=== PATIENT | female | born 1995 | race Caucasian/White ===

== ENCOUNTER 2017-03-07 03:39 | Emergency (ER) | payer SELFPAY ==
[2017-03-07 03:47] VITALS: BP 133/51
[2017-03-07 04:43] LABS: BACTERIA,URINE 0 /HPF (0-FEW); BILIRUBIN,URINE NEG (NEG); CLARITY,URINE CLEAR; COLOR,URINE YELLOW; GLUCOSE,URINE NEG (NEG); NITRITE,URINE NEG (NEG); RBC,URINE 0 /HPF (0-2); SQUAMOUS EPITHELIAL CELL,UR OCC /LPF; UROBILINOGEN,URINE 0.2 mg/dL (0.2 mg/dL)
[2017-03-07] MEDS ORDERED: AMOX1TAB61 PO (04:57)
--- NOTE | 2017-03-07 05:13 | PHYS DOC ---
Past History Past Medical History: Anemia, Asthma Past Surgical History: No Surgical History Alcohol Use: Occasionally Drug Use: None Adult General Chief Complaint Chief Complaint: MULTIPLE COMPLAINTS [facility] HPI Patient is a 21 year old F who presents with multiple complaints. Millicent states that she has occasional nausea without vomiting, occasional abdominal pain mostly in the middle but present occasionally throughout her belly as well as intermittent focal pain however the focal pain is not consistently in the same area or associated with nausea. She also describes dizziness that is difficult to associate with anything, headache that does not seem to linked to any other symptoms, intermittent sharp chest pain lasting seconds to minutes without exacerbating or alleviating factors, episodic limb pain lasting minutes to hours with no exacerbating or alleviating factors. With respect to her chest pain and limb pain, these symptoms have been noted for months. With respect to all other symptoms previously noted, these symptoms have been present over the past 2-3 weeks. She also notes dental pain associated with a cavity that she has had over the past 2-3 weeks. She has not seen a dentist or an started on medications during this time. She also notes intermittent constipation. Her last bowel movement was hard, small, and painful to pass yesterday. Over the past several weeks she feels that she has been constipated. Review of Systems Review of Systems Constitutional: Denies fever or chills [] Eyes: Denies change in visual acuity, redness, or eye pain [] HENT: Denies nasal congestion or sore throat [] Respiratory: Denies cough or shortness of breath [] Cardiovascular: No additional information not addressed in HPI [] GI: Negative except history of present illness : Urinary urgency with feeling of incomplete emptying. Millicent states that this happens 2-3 times daily Musculoskeletal: Negative except history of present illness Integument: Denies rash or skin lesions [] Neurologic: Denies headache, focal weakness or sensory changes [] Endocrine: Denies polyuria or polydipsia [] Family History Family History Noncontributory Current Medications Current Medications No current medications Allergies Allergies Allergies Coded Allergies Type Severity Reaction Last Updated Verified No Known Drug Allergies 03/07/17 No Physical Exam Physical Exam Constitutional: Well developed, well nourished, no acute distress, non-toxic appearance. [] HENT: Normocephalic, atraumatic, bilateral external ears normal, oropharynx moist, no oral exudates, left upper premolar cavity noted with moderate pain to palpation. Mild gingivitis noted in that area Eyes: EOMI, conjunctiva normal, no discharge. [] Neck: Normal range of motion, no tenderness, supple, no stridor. [] Cardiovascular:Heart rate regular rhythm, no murmur [] Lungs & Thorax: Bilateral breath sounds clear to auscultation [] Abdomen: Bowel sounds normal, soft, no tenderness, no masses, no pulsatile masses. [] exam deferred Skin: Warm, dry, no erythema, no rash. [] Back: No tenderness, no CVA tenderness. [] Extremities: No tenderness, no cyanosis, no clubbing, ROM intact, no edema. [] Neurologic: Alert and oriented X 3, normal motor function, normal sensory function, no focal deficits noted. [] Psychologic: Affect normal, judgement normal, mood normal. [] Current Patient Data Vital Signs Vital Signs Date Time Temp Pulse Resp B/P (MAP) Pulse Ox O2 Delivery O2 Flow Rate FiO2 03/07/17 03:47 98.3 86 16 96 Room Air Lab Results Laboratory Tests Test 03/07/17 04:15 03/07/17 04:29 Urine Collection Type Unknown Urine Color Yellow Urine Clarity Clear Urine pH 6.0 Urine Specific [place] 1.010 Urine Protein Neg (NEG-TRACE) Urine Glucose (UA) Neg mg/dL (NEG) Urine Ketones (Stick) Neg mg/dL (NEG) Urine Blood Neg (NEG) Urine Nitrite Neg (NEG) Urine Bilirubin Neg (NEG) Urine Urobilinogen Dipstick 0.2 mg/dL (0.2 mg/dL) Urine Leukocyte Esterase Neg (NEG) Urine RBC 0 /HPF (0-2) Urine WBC 1-4 /HPF (0-4) Urine Squamous Epithelial Cells Occ /LPF Urine Bacteria 0 /HPF (0-FEW) POC Urine HCG, Qualitative hcg negative (Negative) EKG EKG [] Radiology/Procedures Radiology/Procedures [] Course & Med Decision Making Course & Med Decision Making Pertinent Labs and Imaging studies reviewed. (See chart for details) Millicent's history is complicated by multiple nonspecific complaints in multiple different regions and body systems. She has a difficult time elaborating on specifics of each complaint. As new complaints are listed it details are explored and other complaints details seen to change or clarify making it very challenging to follow a story line. At the time of evaluation she was symptom free. Dragon Disclaimer Dragon Disclaimer This chart was dictated in whole or in part using Voice Recognition software in a busy, high-work load, and often noisy Emergency Department environment. It may contain unintended and wholly unrecognized errors or omissions. Departure Departure: Impression: Primary Impression: Dental infection Disposition: HOME, SELF-CARE Condition: STABLE Referrals: PCP,NO (PCP) Patient Instructions: Dental Abscess, Dental Caries Additional Instructions: Millicent was seen in the emergency department for multiple complaints. No emergency medical condition was found on history or physical exam. She was found to have symptoms consistent with a dental infection for which she was started on antibiotics. She was advised to follow-up with a dentist as soon as possible as well as to establish care with a primary care physician in order to further manage her other medical concerns. Scripts Amoxicillin/Potassium Clav (AUGMENTIN 875-125 TABLET) 1 Each Tablet 1 TAB PO BID for 14 Days, #28 TAB Prov: NAIN CHAVEZ MD 03/07/17 NAIN CHAVEZ MD Mar 07, 2017 05:13
[2017-03-07] MEDS ORDERED: AMOXICILLIN/K CLAV 875/125MG TABLET. PO ONE (05:15)
== END 2017-03-07 05:00 | disposition home or self-care (01) ==
LOC: ER 03:39
DX: K04.7 Periapical abscess without sinus (principal); J45.909 Unspecified asthma, uncomplicated; R39.15 Urgency of urination; Z86.2 Personal history of diseases of the blood and blood-forming organs and certain disorders involving the immune mechanism
CPT/HCPCS: 81001; 81025; 99283

== ENCOUNTER 2020-07-22 00:06 | Emergency (ER) | payer SELFPAY ==
[~2020-07-22] VITALS: Ht 160 cm; Wt 68.0 kg
[2020-07-22 00:06] VITALS: BP 144/89
[~2020-07-22 00:06] MED LIST: AMOX1TAB61 PO
--- NOTE | 2020-07-22 00:29 | PHYS DOC ---
Past History Past Medical History: Anemia, Anxiety, Asthma, Depression Past Surgical History: No Surgical History Smoking: Cigarettes Alcohol Use: Occasionally Drug Use: Marijuana, Methamphetamine General Adult EDM: Chief Complaint: Drug abuse HPI: HPI: 25-year-old female presents via EMS from local [facility] [place] [facility] with report of patient with confusion and history of possible drug abuse. Patient reports she smokes something that she believes was methamphetamines earlier tonight. Patient is afraid that the "bad people will get her ". Patient reports she does not necessarily want to be seen or hurt. Reports she does not typically use any drugs other than marijuana. Denies . Reports she currently is not sexually active. Review of Systems: Review of Systems: Constitutional: Denies fever or chills Eyes: Denies redness or eye pain HENT: Denies nasal congestion or sore throat Respiratory: Denies cough or shortness of breath Cardiovascular: Denies chest pain or palpitations GI: Denies abdominal pain, nausea, or vomiting : Denies dysuria or hematuria Musculoskeletal: Denies back pain or joint pain Integument: Denies rash or skin lesions Neurologic: Denies headache, focal weakness or sensory changes Complete systems were reviewed and found to be within normal limits, except as documented in this note. Allergies: Allergies: Allergies Coded Allergies Type Severity Reaction Last Updated Verified No Known Drug Allergies 03/07/17 No Physical Exam: PE: Constitutional: Well developed, well nourished, anxious, non-toxic appearance HENT: Normocephalic, atraumatic Eyes: Conjunctiva normal, no discharge Neck: Normal range of motion, supple Lungs & Thorax: No respiratory distress, equal chest rise and fall Skin: Warm, dry, no erythema, no rash Extremities: No tenderness, ROM intact, no edema Neurologic: Alert and oriented X 3, no focal deficits noted Psychologic: Affect anxious, paranoid EKG: EKG: [] Radiology/Procedures: Radiology/Procedures: [] Course & Med Decision Making: Course & Med Decision Making Patient presents via EMS with report of confusion after use of drugs. Patient thinks she might of smoked some methamphetamines earlier tonight. Patient does appear to be paranoid. Patient however is alert and oriented x3. Patient with steady gait. Vital signs stable. Patient afraid and concerned that we will hurt her. Patient advised we are not here to hurt her and will allow her to stay in the room and sober. Patient now clinically improved. Patient stable for discharge with outpatient follow-up with PCP. Discussed findings and plan with patient, who acknowledges understanding and agreement. Misty Disclaimer: Misty Disclaimer: This electronic medical record was generated, in whole or in part, using a voice recognition dictation system. Departure Departure: Impression: Primary Impression: Drug abuse Additional Impression: Acute paranoia Disposition: 01 DC HOME SELF CARE/HOMELESS Condition: STABLE Referrals: PCP,NO (PCP) Patient Instructions: Alcohol and Drug Addiction, Finding Treatment, Drug Abuse, FAQs, Methamphetamine Abuse, Complications, Paranoia JONO MONSALVE DO Jul 22, 2020 00:28
== END 2020-07-22 04:30 | disposition home or self-care (01) ==
LOC: ER 00:06
DX: F19.10 Other psychoactive substance abuse, uncomplicated (principal); F22 Delusional disorders; F41.9 Anxiety disorder, unspecified; F32.9 Major depressive disorder, single episode, unspecified; J45.909 Unspecified asthma, uncomplicated; F17.210 Nicotine dependence, cigarettes, uncomplicated; F12.10 Cannabis abuse, uncomplicated; F15.10 Other stimulant abuse, uncomplicated; Z86.2 Personal history of diseases of the blood and blood-forming organs and certain disorders involving the immune mechanism
CPT/HCPCS: 99283

== ENCOUNTER 2020-11-15 11:59 | Emergency (ER) | payer SELFPAY ==
[~2020-11-15] VITALS: Ht 160 cm; Wt 66.7 kg
[2020-11-15 12:40] LABS: BASO # 0.1 x10^3/uL (0.0-0.2); BASO % 1 % (0-3); EOS % 0 % (0-3); HEMATOCRIT 43.1 % (36.0-47.0); HEMOGLOBIN 15.1 g/dL (12.0-15.5); LYMPH # 1.3 x10^3/uL (1.0-4.8); LYMPH % 14 % (24-48); MEAN CORPUSCULAR HEMOGLOBIN 31 pg (25-35); MEAN CORPUSCULAR HGB CONC 35 g/dL (31-37); MEAN CORPUSCULAR VOLUME 88 fL (79-100); MONO # 0.6 x10^3/uL (0.0-1.1); MONO % 6 % (0-9); NEUT # 7.8 x10^3uL (1.8-7.7); NEUT % 79 % (31-73); PLATELET COUNT 289 x10^3/uL (140-400); RED BLOOD COUNT 4.91 x10^6/uL (3.50-5.40); RED CELL DISTRIBUTION WIDTH 13.2 % (11.5-14.5); WHITE BLOOD COUNT 9.8 x10^3/uL (4.0-11.0)
--- NOTE | 2020-11-15 12:40 | PHYS DOC ---
Past History Past Medical History: Anemia, Anxiety, Asthma, Depression Additional Past Surgical Histo: [place] teeth Smoking: Cigarettes Alcohol Use: Occasionally Drug Use: Marijuana, Methamphetamine General Adult EDM: Chief Complaint: PSYCH EVALUATION HPI: HPI: 25-year-old female presents after initial evaluation at [facility] with report of hallucinations that have been ongoing for the past several days. Patient reports she feels like "God or the devil "is talking to her. Patient denies any current suicidal thoughts. Patient does report history of met hamphetamine abuse. Patient reports she has not used for several months. Patient does report smoking marijuana a few days ago. Denies alcohol use currently. Patient reports she is unclear if she might be . Patient was initially evaluated by Cheo at the [facility] with concern that patient may require further management and therefore sent to emergency department for medical clearance and psychiatric evaluation. Review of Systems: Review of Systems: Constitutional: Denies fever or chills Eyes: Denies redness or eye pain HENT: Denies nasal congestion or sore throat Respiratory: Denies cough or shortness of breath Cardiovascular: Denies chest pain or palpitations GI: Denies abdominal pain, nausea, or vomiting : Denies dysuria or hematuria Musculoskeletal: Denies back pain or joint pain Integument: Denies rash or skin lesions Neurologic: Denies headache, focal weakness or sensory changes Psychiatric: Reports auditory hallucinations; denies suicidal ideation Complete systems were reviewed and found to be within normal limits, except as documented in this note. Allergies: Allergies: Allergies Coded Allergies Type Severity Reaction Last Updated Verified No Known Drug Allergies 03/07/17 No Physical Exam: PE: Constitutional: Well developed, well nourished, no acute distress, non-toxic appearance HENT: Normocephalic, atraumatic Eyes: PERRL, EOMI, conjunctiva normal, no discharge, no nystagmus Neck: Normal range of motion, no tenderness, supple Lungs & Thorax: No respiratory distress, equal chest rise and fall Abdomen: Soft, no tenderness Skin: Warm, dry, no erythema, no rash Extremities: No tenderness, ROM intact, no edema Neurologic: Alert and oriented X 3, normal motor function, normal sensory function, no focal deficits noted Psychologic: Affect flat, judgment normal, reports auditory hallucinations, denies suicidal ideation EKG: EKG: @1222 NSR at 97bpm, NO ST elevation, QRS 82ms, QT/QTc 340/436ms, incomplete RBBB Radiology/Procedures: Radiology/Procedures: [] Heart Score: C/O Chest Pain: N/A Course & Med Decision Making: Course & Med Decision Making Pertinent Lab studies reviewed. (See chart for details) Patient presents after initial evaluation at the [facility] for hallucinations. Concern for undiagnosed schizophrenia. Patient currently denies any suicidal or homicidal ideation. Patient with history of methamphetamine abuse but reports has not used for several months. Patient does report use of marijuana a few days ago. Medical screening exam performed. Patient neurologically intact. EKG stable. Labs obtained and posted to chart. Rapid Covid test negative. Urine drug screen positive only for THC. Psychiatric assessment team evaluation performed. Lazaro evaluated patient. Patient requesting to be discharged back to homeless residential. Patient has upcoming intake appointment at [facility]. Patient deemed to not be danger to herself or others at this time. Patient stable for discharge with outpatient follow-up with PCP/[facility]. Discussed findings and plan with patient, who acknowledges understanding and agreement. Misty Disclaimer: Misty Disclaimer: This electronic medical record was generated, in whole or in part, using a voice recognition dictation system. Departure Departure: Impression: Primary Impression: Auditory hallucination Disposition: 01 HOME / SELF CARE / HOMELESS Condition: STABLE Referrals: PCPAURORA (PCP) Patient Instructions: Hallucinations and Delusions, Schizophrenia Additional Instructions: Please follow up with [facility] as previously scheduled for intake. JONO MONSALVE DO November 15, 2020 12:39
--- NOTE | 2020-11-15 12:40 | EKG ---
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
[2020-11-15 12:47] LABS: CALCIUM 9.4 mg/dL (8.5-10.1); CREATININE 0.8 mg/dL (0.6-1.0); GFR 87.4; POTASSIUM 3.7 mmol/L (3.5-5.1)
[2020-11-15 12:53] LABS: ALBUMIN 4.2 g/dL (3.4-5.0); ALBUMIN/GLOBULIN RATIO 1.2 (1.0-1.7); MAGNESIUM 2.1 mg/dL (1.8-2.4); TOTAL BILIRUBIN 0.5 mg/dL (0.2-1.0); TOTAL PROTEIN 7.7 g/dL (6.4-8.2)
[2020-11-15 13:26] LABS: AMPHETAMINE/METHAMPHETAMINE NEG (NEG); BARBITURATES NEG (NEG); BENZODIAZEPINES NEG (NEG); CANNABINOIDS POS (NEG); COCAINE NEG (NEG); METHADONE NEG (NEG); OPIATES NEG (NEG); PHENCYCLIDINE NEG (NEG)
[2020-11-15 13:32] LABS: BILIRUBIN,URINE NEG (NEG); CLARITY,URINE CLEAR; COLOR,URINE YELLOW; GLUCOSE,URINE NEG (NEG)
[2020-11-15 13:33] LABS: BACTERIA,URINE 0 /HPF (0-FEW); NITRITE,URINE NEG (NEG); RBC,URINE 0 /HPF (0-2); SQUAMOUS EPITHELIAL CELL,UR MOD /LPF; UROBILINOGEN,URINE 0.2 mg/dL (0.2 mg/dL)
[2020-11-15 14:25] VITALS: BP 117/84
== END 2020-11-15 14:25 | disposition home or self-care (01) ==
LOC: ER 11:59
DX: R44.0 Auditory hallucinations (principal); F41.9 Anxiety disorder, unspecified; J45.909 Unspecified asthma, uncomplicated; F32.9 Major depressive disorder, single episode, unspecified; F17.210 Nicotine dependence, cigarettes, uncomplicated; F12.10 Cannabis abuse, uncomplicated; F15.10 Other stimulant abuse, uncomplicated; Z20.822 Contact with and (suspected) exposure to COVID-19; Z86.2 Personal history of diseases of the blood and blood-forming organs and certain disorders involving the immune mechanism
CPT/HCPCS: 36415; 80053; 80307; 81001; 81025; 83735; 85025; 87086; 87426; 93005; 99284; C9803; G0480; U0003

== ENCOUNTER 2020-11-18 09:17 | Emergency (ER) | payer SELFPAY ==
[~2020-11-18] VITALS: Ht 160 cm; Wt 66.7 kg
--- NOTE | 2020-11-18 09:43 | PHYS DOC ---
Past History Past Medical History: Anemia, Anxiety, Asthma, Depression Additional Past Surgical Histo: [place] teeth Smoking: Cigarettes Alcohol Use: Occasionally Drug Use: Marijuana, Methamphetamine General Adult EDM: Chief Complaint: ANXIETY/PANIC ATTACK HPI: HPI: 25-year-old female presents via EMS with anxiety and panic. Patient was reported to have a panic attack at home and so EMS was called. She tells me that she has been having auditory and visual hallucinations. She has been having these for an undetermined amount of time. She tells me she has never been on medication for this. She tells me that she would like to just go to sleep and then go to [facility]. She does not overtly say she wants to hurt herself. She denies any pain or medical complaints. Patient does admits to washing her hands many times a day. Review of Systems: Review of Systems: Constitutional: Denies fever or chills Eyes: Denies change in visual acuity HENT: Denies nasal congestion or sore throat Respiratory: Denies cough or shortness of breath Cardiovascular: Denies chest pain or edema GI: Denies abdominal pain, nausea, vomiting, bloody stools or diarrhea : Denies dysuria Musculoskeletal: Denies back pain or joint pain Integument: Bilateral erythematous hands Neurologic: Denies headache, focal weakness or sensory changes Endocrine: Denies polyuria or polydipsia Lymphatic: Denies swollen glands Psychiatric: Visual and auditory hallucinations Allergies: Allergies: Allergies Coded Allergies Type Severity Reaction Last Updated Verified No Known Drug Allergies 11/15/20 No Physical Exam: PE: Constitutional: Well developed, well nourished, no acute distress, non-toxic appearance. [] HENT: Normocephalic, atraumatic, bilateral external ears normal, oropharynx moist, no oral exudates, nose normal. [] Eyes: PERRLA, EOMI, conjunctiva normal, no discharge. [] Neck: Normal range of motion, no tenderness, supple, no stridor. [] Cardiovascular:Heart rate regular rhythm, no murmur [] Lungs & Thorax: Bilateral breath sounds clear to auscultation [] Abdomen: Bowel sounds normal, soft, no tenderness, no masses, no pulsatile masses. [] Skin: Erythematous hands bilaterally to the distal wrist consistent with eczema, or extreme dryness.[] Back: No tenderness, no CVA tenderness. [] Extremities: No tenderness, no cyanosis, no clubbing, ROM intact, no edema. [] Neurologic: Alert and oriented X 3, normal motor function, normal sensory function, no focal deficits noted. [] Psychologic: Affect normal, judgement normal, mood anxious. [] EKG: EKG: [] Radiology/Procedures: Radiology/Procedures: [] Heart Score: C/O Chest Pain: N/A Risk Factors: Risk Factors: DM, Current or recent (<one month) smoker, HTN, HLP, family history of CAD, obesity. Risk Scores: Score 0 - 3: 2.5% MACE over next 6 weeks - Discharge Home Score 4 - 6: 20.3% MACE over next 6 weeks - Admit for Clinical Observation Score 7 - 10: 72.7% MACE over next 6 weeks - Early Invasive Strategies Course & Med Decision Making: Course & Med Decision Making Pertinent Labs and Imaging studies reviewed. (See chart for details) The patient's labs are unremarkable except for a decreased sodium. She does not seem to be symptomatic from this. Her urinalysis is negative for or infection. She has talked with behavioral professional who is determined that she can be safely discharged. The patient will go to [facility] crisis management center. She is stable for discharge at this time. [] Misty Disclaimer: Misty Disclaimer: This electronic medical record was generated, in whole or in part, using a voice recognition dictation system. Departure Departure: Impression: Primary Impression: Auditory hallucinations Disposition: HOME / SELF CARE / HOMELESS Condition: STABLE Referrals: PCP,AURORA (PCP) Patient Instructions: Hallucinations and Delusions WANDA PFEIFFER DO November 18, 2020 09:43
[2020-11-18 10:02] LABS: BASO % 0 % (0-3); EOS % 0 % (0-3); HEMATOCRIT 40.6 % (36.0-47.0); HEMOGLOBIN 14.2 g/dL (12.0-15.5); LYMPH # 0.8 x10^3/uL (1.0-4.8); LYMPH % 13 % (24-48); MEAN CORPUSCULAR HEMOGLOBIN 30 pg (25-35); MEAN CORPUSCULAR HGB CONC 35 g/dL (31-37); MEAN CORPUSCULAR VOLUME 86 fL (79-100); MONO # 0.4 x10^3/uL (0.0-1.1); MONO % 7 % (0-9); NEUT # 4.8 x10^3uL (1.8-7.7); NEUT % 79 % (31-73); PLATELET COUNT 260 x10^3/uL (140-400); RED BLOOD COUNT 4.74 x10^6/uL (3.50-5.40); RED CELL DISTRIBUTION WIDTH 12.8 % (11.5-14.5); WHITE BLOOD COUNT 6.1 x10^3/uL (4.0-11.0)
[2020-11-18 10:04] LABS: CALCIUM 8.7 mg/dL (8.5-10.1); CREATININE 0.7 mg/dL (0.6-1.0); POTASSIUM 3.6 mmol/L (3.5-5.1)
[2020-11-18 10:09] LABS: BARBITURATES NEG (NEG); BENZODIAZEPINES NEG (NEG); CANNABINOIDS NEG (NEG); COCAINE NEG (NEG); METHADONE NEG (NEG); OPIATES NEG (NEG); PHENCYCLIDINE NEG (NEG)
[2020-11-18 10:13] LABS: AMPHETAMINE/METHAMPHETAMINE NEG (NEG)
[2020-11-18 10:13] LABS: ALBUMIN 4.1 g/dL (3.4-5.0); ALBUMIN/GLOBULIN RATIO 1.3 (1.0-1.7); TOTAL BILIRUBIN 0.8 mg/dL (0.2-1.0); TOTAL PROTEIN 7.3 g/dL (6.4-8.2)
[2020-11-18 10:18] LABS: BILIRUBIN,URINE NEG (NEG); CLARITY,URINE CLEAR; COLOR,URINE STRAW; GLUCOSE,URINE NEG (NEG); NITRITE,URINE NEG (NEG); UROBILINOGEN,URINE 0.2 mg/dL (0.2 mg/dL)
[2020-11-18 10:19] LABS: BACTERIA,URINE 0 /HPF (0-FEW); RBC,URINE 0 /HPF (0-2); WBC,URINE 0 /HPF (0-4)
[2020-11-18] MEDS ORDERED: ASPIRIN CHEWABLE 81 MG TABLET. ONE (18:39)
[2020-11-18] MEDS ORDERED: IV NORMAL SALINE 1,000ML 1,000 ML IV ONE (21:30)
--- NOTE | 2020-11-18 22:06 | EKG ---
[address] [address] Test Date: 2020-11-18 Test Time: 21:58:10 Pat Name: SHANIA SWARTZ Department: Room: Gender: F Manager Database: : 1995 Requested By: MENDEL ONEIL Order Number: [id number] Reading MD: Measurements Intervals [place] Rate: 77 P: 59 OK: 136 QRS: 31 QRSD: 86 T: 39 QT: 360 QTc: 409 Interpretive Statements SINUS RHYTHM NORMAL ECG RI6.02 No previous ECG available for comparison
[2020-11-19] MEDS ORDERED: SODIUM BICARB ADULT 8.4% 50 MEQ/50 ML DISP.SYRIN. IV ONE (00:45)
[2020-11-19 01:02] LABS: CALCIUM 8.1 mg/dL (8.5-10.1); CREATININE 0.7 mg/dL (0.6-1.0); POTASSIUM 3.4 mmol/L (3.5-5.1)
[2020-11-19 02:20] VITALS: BP 128/72
== END 2020-11-19 02:25 ==
LOC: ER 09:17
DX: F25.9 Schizoaffective disorder, unspecified (principal); F41.0 Panic disorder [episodic paroxysmal anxiety]; J45.909 Unspecified asthma, uncomplicated; F17.210 Nicotine dependence, cigarettes, uncomplicated; F12.10 Cannabis abuse, uncomplicated; F15.10 Other stimulant abuse, uncomplicated; Z20.822 Contact with and (suspected) exposure to COVID-19
CPT/HCPCS: 36415; 80048; 80053; 80307; 81001; 81025; 85025; 87426; 93005; 96360; 99285; J7030; U0003